=== PATIENT | male | born 1995 | race Caucasian/White ===

== ENCOUNTER 2024-07-04 15:07 | Emergency (ER) | payer OTHER, SELFPAY ==
--- NOTE | 2024-07-04 15:09 | ED.GENADULT ---
HPI - General Adult General Chief complaint: Wound/Laceration Stated complaint: leg lac Source: patient Mode of arrival: ambulatory Limitations: no limitations History of Present Illness ED Provider: Israel Villafuerte HPI narrative: 29-year-old male presents with laceration to his left lateral thigh, patient reports he sustained a laceration after trying to jump over a fence. He is not up-to-date on his tetanus shot. Denies numbness and tingling. No other injuries. Related Data Previous Rx's ?Medication ?Instructions ?Recorded amoxicillin 875 mg-potassium 1 tab PO BID 7 days #14 tabs 07/04/24 clavulanate 125 mg tablet Allergies Allergy/AdvReac Type Severity Reaction Status Date / Time No Known Allergies Allergy Verified 07/04/24 15:13 Review of Systems Review of Systems: Yes all other systems are reviewed and are negative [facility] Past Medical History Attestation statement: The following information was validated with the patient. Source: old records reviewed and nursing notes reviewed Physical Exam ED Vital Signs: vss Appearance: Alert.? Oriented X3.? No acute distress.? Head: Normocephalic, atraumatic, no step-offs or deformities Eyes: Pupils equal, round and reactive to light.? ENT: Pharynx normal.? Neck: Normal inspection.? Neck supple.? CVS: Normal heart rate and rhythm.? Respiratory: No respiratory distress. Skin: Skin warm and dry.? Normal skin color.? Normal skin turgor.? + 11 cm linear laceration to left lateral thigh Extremities: No lower extremity edema.? No calf ttp. 5/5 strength to bilateral upper and lower extremities Neuro: Oriented X 3.? No motor deficit.? No sensory deficit. CN 2-12 intact Course Course Course Narrative: This is an RME done by [facility] Wood: Additional HPI, ROS, PE not included below will be deferred to primary provider. 29 year old M presenting with laceration to L thigh that just occured at work today. Pt was climbing over a fence and the fence post cut him. Denies any pain. Pt is unsure when his last tetanus shot was. Appearance: Alert.? Oriented X3.? No acute cardiopulmonary distress distress.? Head: Normocephalic, atraumatic, no step-offs or deformities Neck: Normal inspection.? Neck supple.? CVS: Pulses normal.? Respiratory: No respiratory distress.? Abdomen: Soft and nontender.? Skin: ? Normal skin color. Extremities: 5/5 strength to bilateral upper and lower extremities; + L lateral thigh laceration Neuro: Oriented X 3.? No motor deficit.? No sensory deficit. Reevaluation(s) Reevaluation #1: 16 estefania applied to left thigh laceration. Tolerated procedure well Did go over stitches vs estefania with patient explained sutures would have better esthetics however estefania worse wound healing, he is ok with this and states he would prefer estefania. Plan- dc w/ augmentin Boostrix given Time: 15:31 Medical Decision Making Medical Decision Making MDM Narrative: 29-year-old male presents with left lateral thigh laceration from fence. Physical exam 11 cm laceration Plan repair Will give Boostrix No signs of foreign body to laceration this is likely simple laceration, no muscle involvement only epidermis. Differential Diagnosis Differential Diagnoses: The differential diagnosis associated with the presentation includes No signs of foreign body to laceration this is likely simple laceration, no muscle involvement only epidermis. Admission/Observation Consideration of admission/observation: Escalation of care including admission/observation considered No indicaiton Critical Care Time Critical Care Time Critical Care Time: No Discharge Plan Discharge Clinical Impression: Laceration of leg Patient Disposition: Home, Self-Care Instructions: Laceration (ED) Additional Instructions: Take your medications as prescribed. If you were prescribed antibiotics today, it is important that you take your medication to their entirety, do not skip any doses, do not finish them early. Follow-up with your primary care provider this week. Return to the emergency department with new or worsening symptoms. Such as fevers, chills, chest pain, shortness of breath, nausea, vomiting, dizziness, headache, vision changes, lethargy In case of emergency call 911 Return in 7-10 days for staple removal Prescriptions: New amoxicillin-pot clavulanate 875-125 mg tablet 1 tab PO BID 7 Days Qty: 14 0RF Referrals: Physician,Unknown J [Primary Care Provider] - 2 days Stand Alone Forms: Work/School Release
[2024-07-04 15:10] VITALS: BP 132/80; PULSE 90; RESP 18; TEMP 36.7; O2SAT 97; BMI 34.7
[2024-07-04] MEDS: Diphth,Pertus(ACell),Tet Adult 0.5 ML SYRINGE IM (15:23)
[2024-07-04 15:35] VITALS: BP 132/80; PULSE 90; RESP 18; TEMP 36.7; O2SAT 97
--- OUTSIDE RECORDS SUMMARY | 2024-07-04 15:46 | XMS_ITS | Continuity of Care Document ---
Author Organization [facility] ter Address [address] [place] [id number]- Care Team Providers Care Water Conservation Specialist Name Role Phone Waqas MENDIOLA, Leonidas Primary Care Physici an Encounter [facility] Date(s): 11/19/19 - 11/19/[address] [address]- [facility] Discharge Disposition: A-D/C Home Attending Physician: Jesus Walton MD Admitting Physician: Jesus Walton MD Referring Physician: Jesus Walton MD Allergies, Adverse Reactions, Alerts Substance Reaction Severity Status NKA Active Immunizations Given and Recorded Vaccine Date Status Refusal Reason diphtheria/tetanus/pertussis, acel(DTaP) 02/28/07 Recorded Medications No Known Medications Vital Signs Most recent to oldest [Reference Range]: 1 2 3 Height 187.8 cm (11/19/19 6:31 AM) 188 cm (11/12/19 11:30 AM) Weight 104.8 kg (11/19/19 6:31 AM) 109 kg (11/12/19 11:30 AM) Oxygen Saturation [94-100 %] 98 % (11/19/19 8:45 AM) 100 % (11/19/19 8:30 AM) 100 % (11/19/19 8:15 AM) Pulse Rate [55-90 bpm] 68 bpm (11/19/19 8:15 AM) 78 bpm (11/19/19 6:31 AM) Body Mass Index [18.5-24.99] 29.71 *H* (11/19/19 6:31 AM) 30.84 *>HHI* (11/12/19 11:30 AM) Blood Pressure [90-138/55-84 mm Hg] 127/65mm Hg (11/19/19 8:45 AM) 129/59mm Hg (11/19/19 8:30 AM) 132/62mm Hg (11/19/19 8:15 AM) Respiratory Rate [16-30 br/min] 15 br/min *L* (11/19/19 8:45 AM) 19 br/min (11/19/19 8:30 AM) 18 br/min (11/19/19 8:15 AM) Temperature [96.8-100.4 DegF] 97.5 DegF (11/19/19 9:00 AM) 97.1 DegF (11/19/19 8:15 AM) 97.5 DegF (11/19/19 6:31 AM) Liters per Minute 6 L/min (11/19/19 8:15 AM) Mode of Delivery (Oxygen) Room air (11/19/19 8:45 AM) Room air (11/19/19 8:30 AM) Simple face mask (11/19/19 8:15 AM) Blood pressure sites Arm, left (11/19/19 8:45 AM) Arm, left (11/19/19 8:30 AM) Arm, left (11/19/19 8:15 AM) Temperature Route Temporal (11/19/19 9:00 AM) Temporal (11/19/19 8:15 AM) Temporal (11/19/19 6:31 AM) Dry Weight 104.8 kg (11/19/19 6:31 AM) 109 kg (11/12/19 11:30 AM) Weight Obtained Via Standing scale (11/19/19 6:31 AM) Dry Weight Obtained Via Standing scale (11/19/19 6:31 AM) Patient/family stated (11/12/19 11:30 AM)
--- OUTSIDE RECORDS SUMMARY | 2024-07-04 15:46 | XMS_ITS | Continuity of Care Document ---
Author Organization [facility] Address [address] [place] [address]- Care Team Providers Care Office Clinician Name Role Phone Not on Staff, PCP Primary Care Physician Unavail able [facility]counter [facility] Date(s): 05/28/24 - 06/27/24 [facility] [address] [place] [address]- Allergies, Adverse Reactions, Alerts No Known Allergies Immunizations Given and Recorded Vaccine Date Status Refusal Reason diphtheria/tetanus/pertussis, acel(DTaP) 02/28/07 Recorded Social History Social History Type Response Smoking Status Never (less than 100 in lifetime) entered on: 01/02/21 Sex Patient Care team information Care Team Personnel Name: Not on Staff, PCP Position: [facility] Physician (General Medicine) Member Role: PCP Care Team Related Persons Name: LOWELL MONREAL Address: home [address] [place] [address] Name: CAROLEE MEDRANO Address: home [address] [place] [address]
--- OUTSIDE RECORDS SUMMARY | 2024-07-04 15:46 | XMS_ITS | Continuity of Care Document ---
Author Organization [facility] Address [address] [place] [address]- Care Team Providers Care Junior Programmer Name Role Phone Kelly Motta Primary Care Physician [facility] 08/17/22 - 09/16/22 [facility] [address] [place], [place] [address] Allergies, Adverse Reactions, Alerts No Known Allergies Immunizations Given and Recorded Vaccine Date Status Refusal Reason tetanus/diphtheria/pertussis, acel(Tdap) 08/13/22 Given tetanus-diphtheria toxoids (Td) 11/15/18 Recorded Medications oxyCODONE 5 mg oral tablet 5 mg, 1, tablet, By Mouth, Every 4 hours, Refills 0, Tot. Refills 0, Maintenance, 08/18/22 12:59:00EDT, Partial fill upon patient request if the prescription is for a schedule II opioid drug. Start Date: 08/18/22 Status: Ordered valacyclovir 1 gm oral tablet 0 Refills, Maintenance, 08/10/19 16:00:45 EDT Start Date: 08/10/19 Status: Ordered Problem List Condition Confirmation Course Effective Dates Status Health [facility] Informant Obese class I Confirmed Active Patient Care team information Care Team Personnel Name: Kelly Motta Position: S Associate Professional Member Role: PCP Address: Address: [address] [place] [address] [place] [address]- Care Team Related Persons Name: LOWELL MEDRANO Address: home [address] [place] [address]
--- OUTSIDE RECORDS SUMMARY | 2024-07-04 15:46 | XMS_ITS | Continuity of Care Document ---
Author Organization [facility] Address [address] [place] [address]- Care Team Providers Care Manager Transmission Name Role Phone Waqas MENDIOLA, Leonidas Primary Care Physici an Encounter [facility] Date(s): 08/12/22 - 08/13/[address] [address]- Encounter Diagnosis Hand laceration(Final) - 08/13/22 Injury of tendon of hand(Final) - 08/13/22 Finger laceration(Final) - 08/13/22 Finger laceration involving tendon(Final) - 08/13/22 Discharge Disposition: A-D/C Home Attending Physician: Isela Tejeda DO Admitting Physician: Isela Tejeda DO Referring Physician: Not on Staff, Referring MD Allergies, Adverse Reactions, Alerts No Known Allergies Immunizations Given and Recorded Vaccine Date Status Refusal Reason tetanus/diphtheria/pertussis, acel(Tdap) 08/13/22 Given tetanus-diphtheria toxoids (Td) 11/15/18 Recorded Medications cephalexin monohydrate 500 mg oral capsule 1 capsule = 500 mg, By Mouth, 4 times a day, for 7 days, # 28 capsule, 0 Refills, Acute 08/20/22 0:22:00 EDT, 08/13/22 0:22:00 EDT, Capsule, [id number], Partial fill upon patient request if the prescription is for a schedule II opioid... Start Date: 08/13/22 Stop Date: 08/20/22 Status: Ordered valacyclovir 1 gm oral tablet 0 Refills, Maintenance, 08/10/19 16:00:45 EDT Start Date: 08/10/19 Status: Ordered Problem List Condition Confirmation Course Effective Dates Status Health St atus Informant Obese class I Confirmed Active Results Radiology Reports * Exam Date Time Procedure Performing Provider Status 08/13/22 1:18 AM Hand Min 3 Views Right Roger Khan; Chaitanya (Verified) Notes: (Hand Min 3 Views Right) Reason For Exam: with Pain;Trauma RESULT: Hand Min 3 Views Right Hand Min 3 Views Right, 3 views Hx of Present Illness: lac to right 4th and 5th fingers from piece of metal; Reason: Trauma; with Pain; Clinical Question(s): Fracture; Special Instructions: This is a protocol film and radiologist should call any findings to the Charge Nurse COMPARISON: None. FINDINGS: A splint is present along the ulnar aspect of the hand and wrist limiting detail. No fractures or bone lesions. No arthritic changes. No definite foreign matter. IMPRESSION: Splint limits detail. No definite radiographic abnormality. WSN: [id number] Ordering Physician: Daniela Abbasi Dictated By: Brian Kong MD Dictated Date/Time: 08/13/22 7:38 am Reviewed By: Brian Kong MD Signed By: Brian Kong MD Signed Date/Time: 08/13/22 7:38 am Transcribed By: HAJA Transcribed Date/Time: 08/13/22 7:36 am Vital Signs Most recent to oldest [Reference Range]: 1 2 Height 188 cm (08/12/22 11:07 PM) 188 cm (08/12/22 11:01 PM) Weight 114 kg (08/12/22 11:07 PM) 114 kg (08/12/22 11:01 PM) Oxygen Saturation [94-100 %] 99 % (08/13/22 1:57 AM) 98 % (08/12/22 11:01 PM) Pulse Rate [55-90 bpm] 85 bpm (08/13/22 1:57 AM) 100 bpm *H* (08/12/22 11:01 PM) Body Mass Index [18.5-24.99 kg/m2] 32.25 kg/m2 *>HHI* (08/12/22 11:01 PM) Blood Pressure [90-138/55-84 mm Hg] 130/ 56mm Hg (08/13/22 1:57 AM) 158/87mm Hg *H* (08/12/22 11:01 PM) Respiratory Rate [16-30 br/min] 18 br/mi n (08/13/22 1:57 AM) 16 br/min (08/12/22 11:01 PM) Temperature [96.8-100.4 DegF] 98 DegF (08/13/22 1:57 AM) 99.7 DegF (08/12/22 11:01 PM) Mode of Delivery (Oxygen) Room air (08/13/22 1:57 AM) Room air (08/12/22 11:01 PM) Blood pressure sites Arm, left (08/12/22 11:01 PM) Temperature Route Oral (08/13/22 1:57 AM) Oral (08/12/22 11:01 PM) Dry Weight 114 kg (08/12/22 11:07 PM) 114 kg (08/12/22 11:01 PM) Weight Obtained Via Standing scale (08/12/22 11:01 PM) Dry Weight Obtained Via Standing scale (08/12/22 11:01 PM) XR Hand - right GE 3 Views * [facility]ers[facility] , CIS S: TRANSCRIBE Brian Kong MD: VERIFY Event Display: Result: Authored Date: Hand Min 3 Views Right, 3 views Hx of Present Illness: lac to right 4th and 5th fingers from piece of metal; Reason: Trauma; with Pain; Clinical Question(s): Fracture; Special Instructions: This is a protocol film and radiologist should call any findings to the Charge Nurse COMPARISON: None. FINDINGS: A splint is present along the ulnar aspect of the hand and wrist limiting detail. No fractures or bone lesions. No arthritic changes. No definite foreign matter. IMPRESSION: Splint limits detail. No definite radiographic abnormality. WSN: [id number] Ordering Physician: Daniela Abbasi Dictated By: Brian Kong MD Dictated Date/Time: 08/13/22 7:38 am Reviewed By: Brian Kong MD Signed By: Brian Kong MD Signed Date/Time: 08/13/22 7:38 am Transcribed By: HAJA Transcribed Date/Time: 08/13/22 7:36 am Patient Care team information Personnel Name: Leonidas Alan MD Address: Address: [address] [place] [address]
== END 2024-07-04 15:41 | disposition home or self-care (01) ==
LOC: HO.ED 15:35
PROVIDERS: Emergency Provider Emergency Medicine Emergency Medical Services; PCP Family Medicine
DX: S71.112A Laceration without foreign body, left thigh, initial encounter (principal); W26.8XXA Contact with other sharp object(s), not elsewhere classified, initial encounter; Y93.39 Activity, other involving climbing, rappelling and jumping off; Y92.9 Unspecified place or not applicable; Y99.9 Unspecified external cause status
CPT/HCPCS: 90471; 90715; 99282; 99284